=== PATIENT | female | born 1965 | race Caucasian/White ===

== ENCOUNTER → 2020-09-28 | Outpatient (CLI) | payer BC ==
[~2020-09-28] MED LIST: CARISOPRODOL 3350 MG PO; NAPROSYN375 MG PO; NORCO 5-325 TA1 EACH PO; PRAVACHOL; TRAMADOL; WELLBUTRIN
== END ==
LOC: M.RAD 11:38
PROVIDERS: ATTEND Family Medicine
DX: Z12.31 Encounter for screening mammogram for malignant neoplasm of breast (principal)